=== PATIENT | female | born 1985 | race Caucasian/White ===

== ENCOUNTER 2019-09-26 09:34 | Outpatient (CLI) | payer OTHER, SELFPAY | END 2019-09-26 09:35 | disposition home or self-care (01) | PROVIDERS: PCP Family Medicine; Visit Provider Obstetrics & Gynecology | DX: N83.202 Unspecified ovarian cyst, left side (principal) | CPT/HCPCS: 36415; 86850; 86900; 86901 ==

== ENCOUNTER 2019-10-07 00:37 | Day surgery (SDC) | payer OTHER, SELFPAY ==
[2019-09-23 10:47] VITALS: BMI 18.1
--- NOTE | 2019-10-02 10:00 | PM.IMHP ---
H&P: HPI History of Present Illness Chief complaint: Left Ovarian Cyst/ Pelvic Pain Narrative: Manuela Mendoza is a 33 year old female 2 para 2 who is admitted for laparoscopy and left salpingo-oophorectomy. She has pain discomfort and dyspareunia. She underwent ultrasound which showed a left complex ovarian mass. Risks and benefits were reviewed including but not of , aspiration pneumonia, bleeding, transfusion, perforation injury to bowel, bladder, ureters, or other internal organs with need for open laparotomy. She read the [employer] handout entitled laparoscopy. She had all questions answered. She asked to proceed Review of Systems Review of Systems: All systems reviewed & are unremarkable except as noted in HPI and below PMFSH Family History Family History Grandparent Family history of lung cancer, Onset Age: 60 Social History Social History Smoking status: Smoker, status unknown Second hand tobacco smoke exposure: No Smoking end date: 08/21/05 Alcohol intake: current Meds Home Medications and Allergies Home Medications Medication Instructions Recorded Confirmed Type escitalopram oxalate 10 mg PO DAILY 09/23/19 09/23/19 History Allergies Allergy/AdvReac Type Severity Reaction Status Date / Time DIPHENHYDRAMINE HCL Allergy Severe SUDDEN Uncoded 09/23/19 10:48 SEVERE CHEST BURNING Exam Const: General: no acute distress Eyes: General: appearance normal, both eyes and all related structures Neck: Neck: supple and no JVD Thyroid: thyroid normal Resp: Effort & Inspection: normal respiratory effort Auscultation: clear to auscultation bilaterally Cardio: Rate: regular rate Rhythm: regular rhythm GI: Inspection: non-distended GI Palp: Yes Soft to palpation, No Tenderness to palpation present (GI) and No Guarding due to palpation present (GI) Auscultation: normal bowel sounds : External Female Exam: normal external appearance Speculum Exam - Vagina: normal appearance of the vagina Speculum Exam - Cervix: normal appearance of the cervix Bimanual exam- vagina & uterus: non-tender Bimanual Exam- Adnexa, other: tender (left fullness) Skin: General skin exam: no rashes or lesions noted Extrem: General: normal to inspection and no edema Psych: Mental Status: mental status grossly normal Affect: normal affect Assessment and Plan Additional Plan impression: Complex left ovarian cyst Plan: Laparoscopic left salpingo-oophorectomy
[2019-10-07] VITALS (10 sets, daily range): BP systolic 97–118; BP diastolic 57–69; PULSE 51–92; RESP 14–20; TEMP 36.2–36.4; O2SAT 99–100; BMI 18.6
--- NOTE | 2019-10-07 06:49 | WPDHPUPDATE1 ---
History and Physical Update Update Date/Time: 10/07/19 06:49 History and Physical has been reviewed, including an updated exam of the patient. There are NO changes in the patient's condition. Risks, benefits, and alternatives have been discussed and questions answered. Patient agrees to proceed with procedure.
--- NOTE | 2019-10-07 08:25 | WPDANESEPPF ---
Anes - Initial Pre Proc Eval Procedure: Operation Date: 10/07/19 09:00 Proposed Procedures p Laparoscopic Left Salpingo-Oophorectomy - El Blackmon MD Date/Time: 10/07/19 08:25 Surgeon: El Blackmon MD Pre Op Diagnosis: Left Ovarian Cyst/ Pelvic Pain Patient Data Age: 33 Gender: F Height: 5 ft 11 in Weight: 60.8 kg Last Vital Signs Temp 36.4 C L 10/07/19 07:40 Pulse 70 10/07/19 07:40 Resp 14 10/07/19 07:40 BP 107/57 L 10/07/19 07:40 Pulse Ox 100 10/07/19 07:40 Allergies Allergy/AdvReac Type Severity Reaction Status Date / Time DIPHENHYDRAMINE HCL Allergy Severe SUDDEN Uncoded 10/07/19 07:25 SEVERE CHEST BURNING Home Medications Medication Instructions Recorded Confirmed Type escitalopram oxalate 10 mg PO DAILY 09/23/19 10/07/19 History hydrocodone-acetaminophen [[place]] 1 tablet PO Q4H PRN #30 tablet 10/07/19 Rx Patient hx anesthesia problems: none Family hx anesthesia problems: none PMFSH Past Medical History Medical History Anxiety Family History Family History Grandparent Family history of lung cancer, Onset Age: 60 Social History Social History Smoking status: Smoker, status unknown Second hand tobacco smoke exposure: No Smoking end date: 08/21/05 Alcohol intake: current Anes - Eval Final PreProcedure Day of Procedure 10/07/19 08:25 Patient weight: normal Heart: regular rate and rhythm Lungs: clear to auscultation Airway: Mallampati scale class II Neurological: alert and oriented Last oral intake: >/= 8 hours ASA classification: II Emergent: no Anesthetic plan: proceed Anesthesia type and monitoring: general ETT and standard monitoring Informed Consent: The patient's anesthetic plan and its attendant risks and benefits were discussed with the patient/family/POA. Questions were solicited and answers provided to the satisfaction of the patient/family/POA.
[2019-10-07] MEDS: LACTATED RINGERS 1,000 ML 30 ML IV CONT ×2 (09:18→09:37)
[2019-10-07] MEDS: KETOROLAC 30 MG/ML VIAL (*BKC) IV PUSH (09:19)
--- NOTE | 2019-10-07 09:28 | P.OP_ITS ---
Procedure Note - Detailed Date of procedure: 10/07/19 Pre-op diagnosis: Left Ovarian Cyst/ Pelvic Pain Surgeon: El Blackmon MD Postop diagnosis: Left ovarian cyst/pelvic pain/pelvic adhesions/endometriosis Anesthesia: General endotracheal EBL: 5cc Complications: None Findings: Normal-appearing left ovary and tube normal appearing uterus. Complex left ovarian cyst with what appeared to be endometriosis. Normal appearing appendix liver and gallbladder edge Procedure: Laparoscopic left salpingo-oophorectomy description of procedure: The patient was prepped draped in the normal sterile fashion placed in dorsal lithotomy position. Weighted speculum placed in posterior fornix of vagina. Anterior lip of the cervix grasped with a single- tooth tenaculum. The Quintero's cannula was inserted the cervix to be attached to the uterine cannula for uterine manipulation later. Bladder was then emptied of clear urine. The weighted speculum was removed. Gloves were changed. An infraumbilical incision made and the Veress passed in the abdomen. The abdomen was filled with CO2 gas [id number] 5mm trocar was then advanced in the abdomen under direct visualization. No injury seen gas was reattached and the patient placed in Trendelenburg. A suprapubic incision made in the 5mm trocar advanced under direct visualization assuring no injury. Our left lower quadrant incision made and the 10mm trocar advanced under direct visualization assuring no injury. The above findings were noted the adhesions on the left were sharply dissected once these were clear the left infundibulopelvic structure was skeletonized. It was then clamped, burned, cut this was then placed in an Endo- Catch. Hemostasis was assured. The gas was removed from the abdomen. The trocars removed from the abdomen. Incisions closed with 4 O Monocryl glue. Blood loss was estimated at 5cc. All sponge, needle, instrument counts were correct, there were no immediate complications
== END 2019-10-07 11:45 | disposition home or self-care (01) ==
PROVIDERS: PCP Family Medicine; Visit Provider Obstetrics & Gynecology
PROC: (CPT 49320; principal; 2019-10-07 09:00)
DX: N83.202 Unspecified ovarian cyst, left side (principal); N83.8 Other noninflammatory disorders of ovary, fallopian tube and broad ligament; N73.6 Female pelvic peritoneal adhesions (postinfective); N80.1 Endometriosis of ovary; F41.9 Anxiety disorder, unspecified
CPT/HCPCS: 58661; 88305; A9270; J0330; J1100; J1885; J2250; J2405; J2704; J3010; J7030; J7120; Q9968

== ENCOUNTER 2021-11-09 12:36 | Outpatient (CLI) | payer OTHER, SELFPAY ==
--- NOTE | 2021-11-09 12:50 | ECHO_ITS ---
Patient Info Name: Manuela Mendoza Age: 36 years : 1985 Gender: Female Ht: 72 in Wt: 135 lbs BSA: 1.75 m2 HR: 72 bpm BP: 121 / 64 mmHg Heart Rhythm: Sinus Rhythm Technical Quality: Fair Exam Date: 11/09/2021 11:57 AM Exam Location: [facility] Pulmonary Patient Status: Outpatient Admit Date: 11/09/2021 Staff Ordering Physician: Jessie Campa PAC National Sales Representative: Analilia Ashton RDCS Attending Provider: Murali Sellers MD Referring Physician: Lokesh ALFONSO; Exam Type: CA echo doppler color flow Study Info Indications - Cardiac murmur, unspecified Complete two-dimensional, color flow and Doppler transthoracic echocardiogram is performed. Summary 1. Complete two-dimensional, color flow and Doppler transthoracic echocardiogram is performed. 2. Left ventricular chamber dimension is normal. 3. Left ventricular systolic function is normal, estimated at 55-60%. 4. The left ventricular diastolic function is normal. 5. E/e' 8 is minimally elevated. 6. No pulmonary hypertension, estimated pulmonary arterial systolic pressure is 20 mmHg. Left Ventricle E/e' 8 is minimally elevated. Left ventricular chamber dimension is normal. Left ventricular systolic function is normal, estimated at 55-60%. The left ventricular diastolic function is normal. Right Ventricle Right ventricular systolic function is normal and with normal TAPSE 1.9 cm. Right ventricular chamber dimension is normal. Left Atria Left atrial chamber dimension is normal. Right Atria Right atrial chamber dimension is normal. Aortic Valve The aortic valve is trileaflet. There is no aortic valve stenosis. There is no aortic valve regurgitation. Pulmonic Valve There is trace pulmonic regurgitation. Mitral Valve There is no mitral valve stenosis. There is no mitral valve regurgitation. Tricuspid Valve There is no tricuspid valve regurgitation. No pulmonary hypertension, estimated pulmonary arterial systolic pressure is 20 mmHg. Pericardium/Pleural There is no pericardial effusion. Inferior Vena Cava Normal inferior vena cava with >50% collapse upon inspiration consistent with normal right atrial pressure, 5 mmHg. Aorta The aortic root size at the sinus of Valsalva is normal. Left Ventricular Outflow Tract Name Value Normal LVOT 2D LVOT Diameter 2.1 cm LVOT Doppler LVOT Peak Gradient 4 mmHg LVOT Mean Gradient 2 mmHg LVOT VTI 20 cm LVOT VTI/AV VTI Ratio 0.8 LVOT Stroke Volume 69 ml LVOT CO 4.7 l/min LVOT CI 2.7 l/min/m2 Pulmonic Valve Name Value Normal RVOT Doppler RVOT Peak Gradient 2 mmHg PV Doppler ------
--- NOTE | 2021-11-12 11:10 | WPDHOLTEREM ---
Holter/Event Monitor Holter/Event Monitor Date of procedure: 11/09/21 Holter/Event Procedure: 48 Hr Holter Monitor Indications: Palpitations Conclusion: 1. 48 hour holter monitor on 11/09/21. 2. Predominant rhythm is sinus rhythm. HR range 40-146 bpm; average HR 72 bpm. 3. There are 2 premature supraventricular complexes. No supraventricular tachycardia. 4. There are 3,973 premature ventricular complexes, 4 ventricular couplets, 1 ventricular triplet, 2,383 ventricular trigeminy. One ventricular tachycardia at 150 bpm lasting 7 beats at 19:18. 5. No sinoatrial or atrioventricular blocks. No significant pauses greater than 2 seconds. 6. Patient reports symptoms of palpitations, lightheadedness, hard pounding which demonstrate sinus rhythm, HR range 65-97 bpm with 2 episodes with PVC's and one with ventricular tachycardia described above.
== END 2021-11-09 12:37 | disposition home or self-care (01) ==
PROVIDERS: PCP Family Medicine; Visit Provider Family Medicine
DX: R00.2 Palpitations (principal); R01.1 Cardiac murmur, unspecified; R06.02 Shortness of breath
CPT/HCPCS: 93225; 93226; 93306

== ENCOUNTER 2022-02-13 10:01 | Emergency (ER) | payer OTHER, SELFPAY ==
[2022-02-13 10:15] VITALS: BP 116/66; PULSE 66; RESP 18; TEMP 37.2; O2SAT 100
--- NOTE | 2022-02-13 10:30 | ED.ABDPAIN ---
HPI - Abdominal Pain General Chief Complaint: Urogenital-Female Stated Complaint: abdominal and lower back pain Time Seen by Provider: 02/13/22 10:20 Source: patient Mode of arrival: ambulatory Limitations: no limitations History of Present Illness HPI narrative: Patient presents today complaining of generalized abdominal pain that radiates to her bilateral low back, that started this morning. She also had nausea at onset of symptoms, but this has since resolved after using a heating pad on her abdomen. Patient also reports some mild dysuria x2 days with some dark-colored urine that has been slightly malodorous. Denies hematuria. She currently rates her pain 5/10. She has tried no [id number] medication for symptoms prior to arrival. Related Data Home Medications Medication Instructions Recorded Confirmed buspirone 5 mg tablet 1 tablet BID 02/13/22 02/13/22 Allergies Allergy/AdvReac Type Severity Reaction Status Date / Time diphenhydramine AdvReac Severe Chest Pain Verified 02/13/22 10:21 [From Benadryl Allergy] Review of Systems Review of Systems: CONSTITUTIONAL: Denies body aches, fever, chills, or sweats. EYES: Denies visual changes, redness, or discharge. ENT: Denies rhinorrhea, congestion, sore throat, or otalgia. CARDIOVASCULAR: Denies chest pain, palpitations, or edema. RESPIRATORY: Denies cough or dyspnea. GASTROINTESTINAL: Denies vomiting, or diarrhea.+ Abdominal pain, nausea GENITOURINARY: Denies hematuria.+ Dysuria SKIN: Denies rash, itching, or wounds. MUSCULOSKELETAL: Denies back pain, joint pain, or myalgia. NEUROLOGIC: Denies headache, numbness, tingling, or weakness. PSYCH: Denies depression or anxiety. [facility] Past Medical History Medical History Anxiety Body mass index (BMI) less than 20 Daytime sleepiness Holter monitor, abnormal Low libido PFO (patent foramen ovale) Family History Family History Grandparent Family history of lung cancer, Onset Age: 60 Father CHF (congestive heart failure) Mother No problems noted. Sibling No problems noted. 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 Please see nursing chart for further information. There is no relevant family history pertinent to the presenting complaint Exam Narrative: GENERAL: Well-appearing, well-nourished, and in no acute distress. HEAD: Normocephalic, atraumatic. EYES: EOMI. No redness or drainage. Conjunctivae normal. ENT: Mucous membranes pink and moist. NECK: Normal AROM. CHEST: No respiratory distress. Clear to auscultation. HEART: Regular rate and rhythm. No murmur appreciated. Normal peripheral pulses. ABDOMEN: Soft, nondistended, normal active bowel sounds.+ Tenderness right lower quadrant and suprapubic area without rebound or guarding.-CVAT EXTREMITIES: Normal range of motion. No edema. SKIN: Warm, dry, no rash. Capillary refill normal. Normal skin turgor. NEURO: No focal deficits. Alert and oriented x3. Gait steady. PSYCH: Normal affect. No signs of depression or anxiety. Course Course Level of Care: Express Care Visit Vital Signs Vital signs: Vital Signs Temperature 99.0 F
== END 2022-02-13 10:40 | disposition short-term general hospital (02) ==
PROVIDERS: Emergency Provider Nurse Practitioner; PCP Family Medicine
DX: R10.31 Right lower quadrant pain (principal); R10.30 Lower abdominal pain, unspecified; F17.210 Nicotine dependence, cigarettes, uncomplicated; F41.9 Anxiety disorder, unspecified
CPT/HCPCS: 81003; 81025; 99212; G0463

== ENCOUNTER 2022-02-13 10:54 | Emergency (ER) | payer OTHER, SELFPAY ==
--- NOTE | ~2022-02-13 | US_ITS ---
EXAMINATION: US pelvic complete DATE: 02/13/2022 14:43 INDICATION: RLQ/suprapubic pain, CL cyst on R ovary, r/o tors TECHNIQUE: Multiple transabdominal and endovaginal sonographic images of the pelvis were obtained. COMPARISON: CT abdomen pelvis, same date FINDINGS: Uterus: 9.2 x 5.4 x 6.8 cm. Endometrial complex measures 0.9 cm. Right Ovary: 4.3 x 4.4 x 2.8 cm. Vascular flow is present. Corpus luteal cyst. Left Ovary: Surgically absent. There is small volume free fluid in the pelvis. IMPRESSION: 1. Status post left oophorectomy. 2. Otherwise normal pelvic sonogram findings. Reviewed, dictated and finalized at location K.
--- NOTE | ~2022-02-13 | CT_ITS ---
EXAMINATION: CT abdomen pelvis w con INDICATION: Right lower quadrant and flank pain TECHNIQUE: Computed tomographic images of the abdomen and pelvis were obtained after the administrati on of 100 cc of Omnipaque 300 intravenous contrast. The dose-length product (DLP) was 230.50 mGy-cm. Automated exposure control and iterative reconstruction technique were employed. COMPARISON: 07/19/2016 FINDINGS: The lung bases are clear. The heart size is normal. The liver, pancreas, gallbladder, and a drenal glands are normal. There is a chronic 1.4 cm cyst or lymphangioma spleen. The kidneys are unre markable. The appendix is normal. No definite urolithiasis is identified. There is a corpus luteum of the right ovary. A small amount of free fluid in the pelvis is likely physiologic. There is a tiny u mbilical hernia containing fat. IMPRESSION: 1. No CT correlate for the patient's symptoms. Reviewed, dictated and finalized at location A.
--- NOTE | 2022-02-13 10:56 | ED.ABDPAIN ---
HPI - Abdominal Pain General Chief Complaint: Abdominal Pain <THANG Sanchez Last Filed: 02/13/22 19:52> Stated Complaint: ABD pain <THANG Sanchez Last Filed: 02/13/22 19:52> Time Seen by Provider: 02/13/22 10:55 <THANG Sanchez Last Filed: 02/13/22 19:52> Source: patient and old records reviewed <THANG Sanchez Last Filed: 02/13/22 19:52> Mode of arrival: ambulatory <THANG Sanchez Last Filed: 02/13/22 19:52> Limitations: no limitations <THANG Sanchez Filed: 02/13/22 19:52> History of Present Illness HPI narrative: Patient is a 36-year-old female who presents the ED with report of abdominal pain. Patient reports she developed severe pain in her mid lower abdomen around 8 AM this morning, over her suprapubic region. She also felt the pain in her bilateral lower back at that time. She laid down on a heating pad for a while and reported some relief of the pain. She also states she felt nauseous, sweaty with the pain, but denied any vomiting. She went to an urgent care but was sent here due to right lower quadrant tenderness on exam. Patient states the pain is rated 10 out of 10 on the pain scale earlier today, but is now a 3-4 out of 10. She has not taken anything for the pain. She does still have some discomfort over her suprapubic region. She also reports having increased urination and dysuria over the past couple days, but denies any hematuria. No fever, chills, chest pain, difficulty breathing, diarrhea, constipation, rectal bleeding. <THANG Sanchez Last Filed: 02/13/22 19:52> Related Data Home Medications: Home Medications Medication Instructions Recorded Confirmed buspirone 5 mg tablet 1 tablet BID 02/13/22 02/13/22 <THANG Sanchez Last Filed: 02/13/22 19:52> Allergies/Adverse Reactions: Allergies Allergy/AdvReac Type Severity Reaction Status Date / Time diphenhydramine AdvReac Severe Chest Pain Verified 02/13/22 10:21 [From Benadryl Allergy] <Yeny Goldstein PA-C - Last Filed: 02/13/22 19:52> Review of Systems Review of Systems: CONSTITUTIONAL: Reports diaphoresis. Denies fever, chills. CARDIOVASCULAR: Denies chest pain. RESPIRATORY: Denies dyspnea. GASTROINTESTINAL: Reports suprapubic abdominal pain, nausea. Denies vomiting, constipation, rectal bleeding, or diarrhea. GENITOURINARY: Reports dysuria, urinary frequency. Denies hematuria. MUSCULOSKELETAL: Reports bilateral lower back pain. Denies joint pain, or myalgia. NEUROLOGIC: Denies headache, numbness, or weakness. <Yeny Goldstein PA-C - Last Filed: 02/13/22 19:52> All systems reviewed & are unremarkable except as noted in HPI and below <Yeny Goldstein PA-C - Last Filed: 02/13/22 19:52> [facility] Past Medical History Medical History: Medical History (Updated 02/14/22 @ 00:00 by [facility] Jake) Anxiety Body mass index (BMI) less than 20 Daytime sleepiness Holter monitor, abnormal Low libido PFO (patent foramen ovale) <Yeny Goldstein PA-C - Last Filed: 02/13/22 19:52> Surgical History Surgical History: Surgical History (Updated 02/13/22 @ 11:24 by Yeny Goldstein PA-C) History of laparoscopy History of left oophorectomy <Yeny Goldstein PA-C - Last Filed: 02/13/22 19:52> Family History Family History: Family History Grandparent Family history of lung cancer, Onset Age: 60 Father CHF (congestive heart failure) Mother No problems noted. Sibling No problems noted. <Yeny Goldstein PA-C - Last Filed: 02/13/22 19:52> Social History Social History: Social History Smoking packs per day: 0.5 Smoking cigarettes per day: 10.0 Years smoked: 15 Smoking pack-years: 7.50 Tobacco type: cigarettes Second hand tobacco smoke exposure: No Al
[2022-02-13 11:01] VITALS: BP 114/70; PULSE 66; RESP 14; TEMP 36.6; O2SAT 100
[2022-02-13 11:10] LABS: Basophils Percent Auto 0.3 % (0.2-1.2); Eosinophils Absolute Auto 0.1 K/mm3 (0-0.3); Hematocrit 41.2 % (37.0-47.0); Immature Granulocyte Absolute 0.03 K/mm3 (0.00-0.031); Immature Granulocyte Percent A 0.3 % (0-0.5); Lymphocytes Absolute Auto 1.22 K/mm3 (0.9-3.2); Mean Corpuscular HGB Conc 31.6 g/dl (32-36); Mean Corpuscular Hemoglobin 27.7 pg (26-34); Mean Corpuscular Volume 87.7 fl (80-100); Mean Platelet Volume 11.5 fl (7.4-10.4); Monocytes Absolute Auto 0.7 K/mm3 (0.1-0.6); Monocytes Percent Auto 6.6 % (2.6-8.5); Neutrophils Absolute Auto 8.1 K/mm3 (1.3-6.7); Neutrophils Percent Auto 79.8 % (45.5-73.1); Platelet Count Result 164 k/mm3 (150-375); Red Cell Distribution Width 14.6 % (11.5-14.5); White Blood Count 10.2 K/mm3 (4.5-10.0)
[2022-02-13 11:11] LABS: Appearance Urine Clear (Clear); Bilirubin Urine Negative (Negative); Color Urine Yellow (Yellow); Glucose Urine UA Negative (Negative); Ketones Urine Negative (Negative); Leukocyte Esterase Ur Trace LEU/UL (Negative); Nitrate Urine Negative (Negative); Protein Urine Negative (Negative); Urobilinogen Urine 0.2 mg/dL (<2.0)
[2022-02-13 11:14] LABS: Add Urine Microscopic? YES; Blood Urine Trace-Intact (Negative)
[2022-02-13 11:15] LABS: Bacteria Urine Trace /hpf; RBC Urine 0-2 /hpf (0-2); Squamous Epithelial Cell Urine Occasional /hpf (Few); WBC Urine 0-3 /hpf
[2022-02-13 11:19] LABS: Alanine Aminotransferase 11 U/L (6-35); Albumin Level 4.7 g/dL (3.5-5.1); Alkaline Phosphatase 74 U/L (38-126); Anion Gap 5 mmol/L (8-16); Aspartate Amino Transferase 20 U/L (14-36); Bilirubin,Total 0.4 mg/dL (0.2-1.3); Blood Urea Nitrogen 12 mg/dL (7-17); Calcium 9.3 mg/dL (8.4-10.2); Carbon Dioxide 27 mmol/L (22-30); Chloride 105 mmol/L (98-107); Estimated CRCL calculation 90 ml/min; Estimated Glomerular Filt Rate > 60; Glucose 93 mg/dL (65-110); Lipase 74 U/L (23-300); Potassium 4.2 mmol/L (3.4-5.0); Sodium 137 mmol/L (137-145)
[2022-02-13] MEDS: SODIUM CHLORIDE 0.9% IV 1,000 ML 999 ML IV CONT (12:45)
== END 2022-02-13 15:30 | disposition home or self-care (01) ==
PROVIDERS: Physician Assistant; Emergency Provider Emergency Medicine; PCP Family Medicine
DX: F41.9 Anxiety disorder, unspecified (principal); F17.210 Nicotine dependence, cigarettes, uncomplicated; N83.11 Corpus luteum cyst of right ovary; Z90.721 Acquired absence of ovaries, unilateral
CPT/HCPCS: 36415; 74177; 76856; 80053; 81001; 81025; 83690; 85025; 87086; 96361; 96374; 99284; J0131; J7030; Q9967

== ENCOUNTER → 2022-07-29 13:45 | Outpatient (CLI) | payer OTHER, SELFPAY ==
--- NOTE | ~2022-07-29 | XR_ITS ---
XR hip LT 2V w AP pelvis, XR femur LT min 2V 07/29/2022 14:00 Indication: Left hip pain. Old injury. Procedure: AP pelvis and 2 views left hip and 2 views of the left femur Comparison: 04/30/2012 Findings: No fracture, subluxation or dislocation. There is an intramedullary johnny in the femur with a single proximal and 2 distal interlocking screws. There is heterotopic ossification adjacent to the greater trochanter. Pelvic rings are intact. There is callus formation in the mid shaft of the femur from prior fracture. Impression: 1: No acute bone or joint abnormality. Reviewed, dictated and finalized at location A. [employer] Impression: 1: No acute bone or joint abnormality. Impression: 1: No acute bone or joint abnormality.
== END ==
PROVIDERS: PCP Physician Assistant Medical; Visit Provider Physician Assistant Medical
DX: G89.29 Other chronic pain (principal); M25.559 Pain in unspecified hip
CPT/HCPCS: 73502; 73552

== ENCOUNTER 2023-01-10 14:15 | Outpatient (CLI) | payer OTHER, SELFPAY ==
[2023-01-10 15:30] LABS: Basophils Absolute Auto 0.1 K/mm3 (0.0-0.1); Basophils Percent Auto 0.8 % (0.2-1.2); Eosinophils Absolute Auto 0.2 K/mm3 (0-0.3); Eosinophils Percent Auto 2.1 % (0-4.4); Hematocrit 37.9 % (37.0-47.0); Hemoglobin 12.3 g/dL (12.0-15.0); Immature Granulocyte Absolute 0.01 K/mm3 (0.00-0.031); Immature Granulocyte Percent A 0.1 % (0-0.5); Lymphocytes Absolute Auto 2.22 K/mm3 (0.9-3.2); Lymphocytes Percent Auto 30.6 % (18.3-44.2); Mean Corpuscular HGB Conc 32.5 g/dl (32-36); Mean Corpuscular Hemoglobin 28.7 pg (26-34); Mean Corpuscular Volume 88.6 fl (80-100); Mean Platelet Volume 11.6 fl (7.4-10.4); Monocytes Absolute Auto 0.6 K/mm3 (0.1-0.6); Monocytes Percent Auto 8.4 % (2.6-8.5); Neutrophils Absolute Auto 4.2 K/mm3 (1.3-6.7); Platelet Count Result 166 k/mm3 (150-375); Red Blood Count 4.28 M/mm3 (4.2-5.4); White Blood Count 7.3 K/mm3 (4.5-10.0)
== END 2023-01-10 14:16 | disposition home or self-care (01) ==
LOC: ANHSURGERY 14:20
PROVIDERS: PCP Physician Assistant Medical; Visit Provider Obstetrics & Gynecology
DX: N81.4 Uterovaginal prolapse, unspecified (principal); Z01.818 Encounter for other preprocedural examination
CPT/HCPCS: 36415; 85025; 86850; 86900; 86901

== ENCOUNTER 2023-01-14 16:44 | Observation (INO) | payer OTHER, SELFPAY ==
[2023-01-09 09:22] VITALS: BMI 18.3
--- NOTE | 2023-01-09 09:26 | PC.NURSE ---
Report to the Outpatient Waiting Room, entrance under the green pavilion located off [facility], at time 7:30 on date 01/13/23. Planned Procedure Time: 9:30. Time changes happen often and if your time is changed the preop area will call you the afternoon before. - You and your visitor will be asked to self-screen and do not enter if you have any COVID symptoms. - A mask is optional within the hospital at this time. Patients may have clear liquids (water, carbonated beverages, clear teas, apple juice) until 3 hours prior to surgery (6:30) with a maximum of 20 ounces. - No food from midnight until time of surgery Take the following medications with a SIP of water the morning of surgery: N/A DO NOT STOP ANY OF YOUR OTHER PRESCRIPTION MEDICATIONS PRIOR TO SURGERY?EXCEPT THE FOLLOWING Medications to discontinue per physician: N/A Date to take last dose: N/A Please no make-up, nail chinese, hairspray, perfume, deodorant, or body powder the day of surgery. No jewelry (including any body piercings) or valuables the day of surgery, leave them at home. Please take a shower or bath the night before, or the morning of, surgery with an antibacterial soap. Wear comfortable, loose fitting clothing. - Jewelry must be removed prior to entering the operating room. Rings and piercings that are not removed may be cut off. - The hospital will not accept responsibility for valuables. - Please leave all valuables, including medications, at home the day of surgery. If you are going home after surgery, a licensed charter coach driver must drive you home. - NO public transportation without another adult if you receive anesthesia. - We recommend that an adult stay with you for 24 hours following discharge. - We also recommend that you do not drive, make important decision, drink alcoholic beverages, or take any drugs that were not prescribed by your health care provider for at least 24 hours after your discharge time. Follow any additional instructions given to you from your surgeon. If you or anyone in your household have experienced Covid symptoms in the past week, please notify your surgeon or the nurse liaison at the phone number below for possible testing. Telephone instructions given to PT - ISSA JACK and asked if any additional questions and then verbalized understanding. Patient advised to call surgeon office or pre surgery nurse liaison [phone] if any additional questions.
--- NOTE | 2023-01-12 07:32 | PM.IMHP ---
H&P: HPI History of Present Illness Date/Time: 01/12/23 07:32 Chief Complaint: uterine prolapse/pelvic pain /dyspareunia Narrative: this is a 37-year-old 2 para 2 admitted for robotic total vaginal hysterectomy and bilateral salpingectomy secondary to uterine prolapse and pelvic pain. Ultrasound was. The prolapse is Kuster pain discomfort dyspareunia. Risks and benefits of this procedure exclusive , aspiration bleeding, transfusion, perforation bowel or other internal organs with need for. She received the ACOG handout hysterectomy as well as the de [place]vin handout. She had all questions answered and asked to proceed PMFSH Past Medical History Medical History Anxiety Body mass index (BMI) less than 20 Daytime sleepiness Holter monitor, abnormal Low libido PFO (patent foramen ovale) Surgical History Surgical History History of laparoscopy History of left oophorectomy Family History Family History Grandparent Family history of lung cancer, Onset Age: 60 Father CHF (congestive heart failure) Mother No problems noted. Sibling No problems noted. Social History Social History Smoking packs per day: 0.5 Smoking cigarettes per day: 10.0 Years smoked: 10 Smoking pack-years: 5.00 Smoking status: Current every day smoker Tobacco type: cigarettes Second hand tobacco smoke exposure: No Smoking end date: 05/21/22 Alcohol intake: current Drinks per week: 2 Substance use: never Substance use type: does not use Living arrangements: with family Occupation/Education: occupation Additional occupation/education comments: [employer] Gender identity (if verbalized by the patient): Female Sexual Orientation (if Verbalized by the Patient): Straight or Heterosexual Spiritual care concerns: No Meds Home Medications and Allergies Home Medications Medication Instructions Recorded Confirmed Type No Home Medications 01/09/23 01/09/23 History Allergies Allergy/AdvReac Type Severity Reaction Status Date / Time diphenhydramine AdvReac Severe Chest Pain Verified 01/09/23 09:21 [From Benadryl Allergy] Exam Const: General: cooperative, healthy appearing, comfortable and average body habitus Orientation/consciousness: oriented to person, oriented to place and oriented to time HENMT: Head: normal to inspection Resp: Effort & Inspection: normal respiratory effort Cardio: Rate: regular rate Rhythm: regular rhythm Heart sounds: S1 normal heart sound present and S2 normal heart sound present GI: Inspection: normal to inspection : External Female Exam: normal external appearance Speculum Exam - Vagina: normal appearance of the vagina Speculum Exam - Cervix: normal appearance of the cervix ( second-degree prolapse present) Bimanual exam- vagina & uterus: non-tender and Uterine tenderness Bimanual Exam- Adnexa, other: normal adnexae Assessment and Plan Assessment and plan (1) Pelvic pain: Code(s): R10.2 - Pelvic and perineal pain Status: Acute (2) Uterine prolapse: Code(s): N81.4 - Uterovaginal prolapse, unspecified Status: Acute Plan robotic total vaginal hysterectomy bilateral salpingectomy
[2023-01-13] VITALS (14 sets, daily range): BP systolic 92–122; BP diastolic 55–78; PULSE 48–87; RESP 12–18; TEMP 36.2–37.3; O2SAT 98–100
--- NOTE | 2023-01-13 06:27 | WPDHPUPDATE1 ---
History and Physical Update Update Date/Time: 01/13/23 06:27 History and Physical has been reviewed, including an updated exam of the patient. There are NO changes in the patient's condition. Risks, benefits, and alternatives have been discussed and questions answered. Patient agrees to proceed with procedure.
--- NOTE | 2023-01-13 08:02 | WPDANESEPPF ---
Anes - Initial Pre Proc Eval Procedure: Operation Date: 01/13/23 09:30 Proposed Procedures p Robotic Assisted Total Vaginal Hysterectomy with Right Salpingectomy - El Garcia MD Date/Time: 01/13/23 08:02 Surgeon: El Garcia MD Pre Op Diagnosis: Uterine Prolapse, Dysmenorrhia, Dyspareunia Patient Data Age: 37 Gender: F Height: 1.83 m Weight: 55.55 kg Last Vital Signs Temp 97.9 F 01/13/23 07:46 Pulse 87 01/13/23 07:46 Resp 16 01/13/23 07:46 BP 110/74 01/13/23 07:46 Pulse Ox 100 01/13/23 07:46 O2 Del Method Room Air 01/13/23 07:46 Allergies Allergy/AdvReac Type Severity Reaction Status Date / Time diphenhydramine AdvReac Severe Chest Pain Verified 01/13/23 07:53 [From Benadryl Allergy] Home Medications Medication Instructions Recorded Confirmed Type hydrocodone 5 mg-acetaminophen 325 1 tablet PO Q4H PRN pain #30 tabs 01/13/23 Rx mg tablet Patient hx anesthesia problems: none Family hx anesthesia problems: none Results Review: All pre-operative results and documents have been reviewed as part of the pre-operative evaluation. [facility] Past Medical History Medical History Anxiety Body mass index (BMI) less than 20 Daytime sleepiness Holter monitor, abnormal Low libido PFO (patent foramen ovale) Surgical History Surgical History History of laparoscopy History of left oophorectomy Family History Family History Grandparent Family history of lung cancer, Onset Age: 60 Father CHF (congestive heart failure) Mother No problems noted. Sibling No problems noted. 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 Gender identity (if verbalized by the patient): Female Sexual Orientation (if Verbalized by the Patient): Straight or Heterosexual Spiritual care concerns: No Anes - Eval Final PreProcedure Day of Procedure 01/13/23 08:02 Patient weight: normal Heart: regular rate and rhythm Lungs: clear to auscultation Airway: Mallampati scale Neurological: alert and oriented Last oral intake: >/= 8 hours ASA classification: II Emergent: no Anesthetic plan: proceed Anesthesia type and monitoring: general ETT and standard monitoring Results Review: All pre-operative results and documents have been reviewed as part of the pre-operative evaluation. Informed Consent: The patient's anesthetic plan and its attendant risks and benefits were discussed with the patient/family/POA. Questions were solicited and answers provided to the satisfaction of the patient/family/POA.
[2023-01-13] MEDS: LACTATED RINGERS 1,000 ML 30 ML IV CONT ×2 (08:10→10:58)
[2023-01-13] MEDS: KETOROLAC 15 MG/ML VIAL (*BKC) IV PUSH (08:11)
[2023-01-13] MEDS: ACETAMINOPHEN 500 MG TABLET 1000 MG PO (08:11)
[2023-01-13] MEDS: ceFAZolin 2 GM/D5W 50 ML 2 GM/50 ML BAG IVPB (09:21)
--- NOTE | 2023-01-13 10:22 | W.PM.PROC2 ---
Procedure Note - Detailed Date of Procedure 01/13/23 Pre-op Diagnosis Uterine Prolapse, Dysmenorrhia, Dyspareunia Post-op Diagnosis Other (Endometriosis of right ovary) Procedure Performed robotic total vaginal hysterectomy right salpingo-oophorectomy and left salpingectomy Surgeon El Garcia MD Anesthesia General Indications 37-year-old female status post right oophorectomy secondary to endometriosis who was admitted for hysterectomy secondary to enlarged uterus uterine prolapse cutting complex right ovarian cyst. Initially the plan was to retain the remaining right ovary however was encased with endometriosis did not appear salvageable Findings uterine prolapse. Enlarged uterus. Left fallopian tube portion was present. Right ovary was encased in endometriosis Description of Procedure patient was prepped draped in the normal sterile fashion placed in dorsal lithotomy position. Under excellent general trach anesthesia weighted speculum placed in posterior fornix vagina. Anterior lip of the cervix grasped with single-tooth tenaculum. Uterus sounded to 10cm. Serial dilatation with fragmented dilators performed. This was followed by passage of the 10. LEYLA and the 3. 0.5 cold cup. Next the 16 Maori catheter was placed and the single-tooth tenaculum and weighted speculum were removed. Gloves were changed. Supraumbilical incision made the Veress needle passed in the abdomen. Abdomen filled with CO2 gas [id number]. The 8mm trocar advanced in the abdomen. Downside visualized no injury seen. Patient placed in Trendelenburg 20? and right left lateral quadrant incisions made. 8Mm trocars advanced under direct visualization assuring no injury. Right upper quadrant incision made the 8mm trocar advanced under direct visualization assuring no injury. The robot was docked. Attention was turned to the console. The right ovary was encased with multiple areas of endometriosis and a large what appeared to be endometrioma. If not feel that it was salvageable. The left ovary and portion of the tube were surgically absent. The left fallopian tube was dissected away from the lateral complex the round ligament was grasped on the left clamped, burned, cut. Bladder flap formed by sharply dissecting the peritoneum and reflecting the bladder caudally to the opposite round ligament was clamped, burned, cut. It was felt that point there was no saving right ovary tube so the infundibulopelvic structure on that side skeletonized clamping burning cutting and bringing this to level of previously cut round ligament. The left cardinal broad ligaments were serially skeletonized clamping burning cutting and bringing these down to the uterine vessels on the left. These were individually clamped, burned, cut. On the right the cardinal broad ligaments were serially skeletonized clamping, burned using cutting and bringing this down to the level the ovarian vessels so on right. These were individually clamped, burned, cut. Good blanching was seen in a colpotomy incision was made the uterus cervix fallopian tubes and right ovary removed through the vagina. The vagina then closed with continuous running 0 Vicryl from lateral edge to lateral edge back to the midline. Irrigation undertaken until clear. Hemostasis was assured the lap term removed and accounted for. Robot was undocked the gas removed from the abdomen. The trocars removed and closed with 4 Monocryl and glue. Patient was awakened and went to recovery in satisfactory condition. All sponge, needle, instrument counts were correct. There were no immediate complications Estimated Blood Loss 25 Drains No Packing No Pathology Yes Complications No immediate complications Condition Stable Disposition PACU
[2023-01-13] MEDS: fentaNYL CITRATE INJ (*CRX) 100 MCG/2 ML VIAL 25 MCG IV PUSH ×7 (10:49→11:44)
--- NOTE | 2023-01-13 12:05 | PC.NURSE ---
PT arrived on unit via bed accompanied by spouse and family. PT alert and awake and oriented to room 277 and surrounding area. 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 PT and spouse both recipients of such instructions and no barriers to learning identified at this time. PT received such instructions per one to one discussion and demonstrations. PT verbalized understanding of such care.
[2023-01-13] MEDS: DEXTROSE 5%/LACTATED RINGERS 1,000 ML 125 ML IV CONT ×2 (13:07→20:40)
[2023-01-13] MEDS: KETOROLAC 30 MG/ML VIAL (*BKC) IV PUSH (13:07)
[2023-01-13] MEDS: SIMETHICONE 80 MG TAB.CHEW PO ×3 (13:08→17:56)
[2023-01-13] MEDS: HYDROcodone/acetaminophen (*CRX) 5-325 MG TABLET 1 TAB PO ×3 (15:21→20:59)
[2023-01-13] MEDS: DOCUSATE SODIUM 100 MG CAPSULE PO (17:56)
[2023-01-13] MEDS: ESTRADIOL 7 DAY 0.05 MG PATCH TRANSDERM (20:50)
[2023-01-14] VITALS (13 sets, daily range): BP systolic 82–101; BP diastolic 45–60; PULSE 60–77; RESP 14–18; TEMP 36.3–37.2; O2SAT 97–100
[2023-01-14] MEDS: SIMETHICONE 80 MG TAB.CHEW PO ×4 (04:42→17:49)
[2023-01-14] MEDS: IBUPROFEN 600 MG TABLET PO ×2 (04:43→23:22)
[2023-01-14] MEDS: HYDROcodone/acetaminophen (*CRX) 5-325 MG TABLET 1 TAB PO (04:43)
[2023-01-14 05:40] LABS: Basophils Percent Auto 0.2 % (0.2-1.2); Eosinophils Percent Auto 0.2 % (0-4.4); Hemoglobin 7.6 g/dL (12.0-15.0); Immature Granulocyte Absolute 0.03 K/mm3 (0.00-0.031); Immature Granulocyte Percent A 0.2 % (0-0.5); Lymphocytes Absolute Auto 1.57 K/mm3 (0.9-3.2); Lymphocytes Percent Auto 12.5 % (18.3-44.2); Mean Corpuscular HGB Conc 31.7 g/dl (32-36); Mean Corpuscular Hemoglobin 28.1 pg (26-34); Mean Corpuscular Volume 88.9 fl (80-100); Mean Platelet Volume 12.3 fl (7.4-10.4); Monocytes Absolute Auto 0.8 K/mm3 (0.1-0.6); Monocytes Percent Auto 6.4 % (2.6-8.5); Neutrophils Absolute Auto 10.1 K/mm3 (1.3-6.7); Neutrophils Percent Auto 80.5 % (45.5-73.1); Platelet Count Result 139 k/mm3 (150-375); Red Cell Distribution Width 12.9 % (11.5-14.5); White Blood Count 12.5 K/mm3 (4.5-10.0)
--- NOTE | 2023-01-14 07:03 | PM.GYNPNOP ---
[employer] FRONT PRESSER - A/P Postoperative Procedures: Procedures Operation Date: 01/13/23 09:30 Actual Procedure Side Surgeon p Robotic Assisted Total Vaginal Hysterectomy with Right Salpingo-Oophorectomy, Left Salpingectomy Bilateral El Garcia MD Postoperative status: doing well Postoperative plan: routine post-op care, see orders, ambulate, advance diet, voiding trials and discharge Time Spent With Patient Time: Total time spent is greater than 50% in coordination of care (as documented) at patient's floor/unit and/or counseling patient: Time with patient: less than 15 minutes VEST FRONT PRESSER- PN:Subj Post-Op Subjective Date/time seen: 01/14/23 07:03 Interval history: had a near syncopal episode yesterday. Feeling better today Subjective: patient reports feeling better, patient has no complaints and pain is well controlled Exam Const: General: cooperative, healthy appearing and comfortable Nutritional Appearance: average body habitus Orientation/consciousness: oriented to person, oriented to place and oriented to time HENMT: Head: normal to inspection Resp: Effort & Inspection: normal respiratory effort Cardio: Rate: regular rate Rhythm: regular rhythm Heart sounds: S1 normal heart sound present and S2 normal heart sound present GI: Inspection: normal to inspection and incision ( wounds are clean dry and intact) Percussion: Yes normal to percussion Auscultation: normal bowel sounds VEST FRONT PRESSER - PN: Obj Data Vital Signs Vital Signs: Vital Signs - 24 hr 01/13/23 07:46 01/13/23 10:39 01/13/23 10:50 Temperature 97.9 F 97.2 F L Pulse Rate 87 72 55 L Respiratory Rate 16 16 12 Blood Pressure 110/74 122/60 115/71 Pulse Oximetry 100 100 100 Oxygen Delivery Room Air Simple Face Mask Simple Face Mask Oxygen Flow Rate 8 8 01/13/23 11:05 01/13/23 11:20 01/13/23 11:35 Temperature Pulse Rate 48 L 85 72 Respiratory Rate 12 16 16 Blood Pressure 116/71 112/75 118/78 Pulse Oximetry 100 100 100 Oxygen Delivery Simple Face Mask Simple Face Mask Simple Face Mask Oxygen Flow Rate 8 8 8 01/13/23 11:40 01/13/23 11:50 01/13/23 12:00 Temperature Pulse Rate 56 L 52 L Respiratory Rate 12 14 Blood Pressure 102/68 105/60 Pulse Oximetry 100 98 100 Oxygen Delivery Room Air Room Air Room Air Oxygen Flow Rate 01/13/23 12:10 01/13/23 12:15 01/13/23 17:30 Temperature 97.5 F L 97.8 F Pulse Rate 63 63 64 Respiratory Rate 18 18 18 Blood Pressure 114/65 120/68 Pulse Oximetry 100 100 100 Oxygen Delivery Room Air Oxygen Flow Rate 01/13/23 20:11 01/13/23 20:11 01/13/23 23:47 Temperature 99.2 F 99 F Pulse Rate 60 60 65 Respiratory Rate 18 18 18 Blood Pressure 108/61 92/55 L Pulse Oximetry 100 100 98 Oxygen Delivery Room Air Oxygen Flow Rate 01/13/23 23:47 01/14/23 04:35 01/14/23 04:35 Temperature 98.9 F Pulse Rate 65 69 69 Respiratory Rate 18 18 18 Blood Pressure 94/45 L Pulse Oximetry 98 99 99 Oxygen Delivery Room Air Room Air Oxygen Flow Rate Intake/Output Intake/Output: Intake & Output 01/11/23 01/12/23 01/13/23 01/14/23 23:59 23:59 23:59 23:59 Intake Total 3050 400 Output Total 1590 300 Balance 1460 100 Meds/Results Medications: Active Medications Generic Name Dose Route Start Last Admin Trade Name Freq PRN Reason Stop Dose Admin Hydrocodone Bitart/Acetaminophen 1 tab 01/13/23 12:06 Hydrocodone/Acetaminophen (*Crx) 10-325 Mg Tablet PO Q3H PRN Pain Rated 6 or Greater Hydrocodone Bitart/Acetaminophen 1 tab 01/13/23 12:06 01/14/23 04:43 Hydrocodone/Acetaminophen (*Crx) 5-325 Mg Tablet PO 1 tab Q3H PRN Administration Pain Rated 5 or Less Docusate Sodium 100 mg 01/13/23 17:00 01/13/23 17:56 Docusate Sodium 100 Mg Capsule PO 100 mg BID NUBIA Administration Enoxaparin Sodium 40 mg 01/14/23 09:00 Enoxaparin 40 Mg/0.4 Ml Syringe SUB-Q DAILY NUBIA Estradiol 0.05 mg 01/13/23 12:06 01/13/23 20:50 Estra
--- NOTE | 2023-01-14 07:07 | PM.DS ---
DS: Admitting Diagnosis Discharge Date 01/14/2023 Admitting Diagnosis pelvic pain/uterine prolapse DS: Discharge Diagnosis Discharge Diagnosis (1) Uterine prolapse: Code(s): N81.4 - Uterovaginal prolapse, unspecified Status: Acute (2) Pelvic pain: Code(s): R10.2 - Pelvic and perineal pain Status: Acute DS: Summary Hospital Course Reason for hospitalization: patient was admitted for hysterectomy and bilateral salpingectomy Hospital Course: she underwent an unremarkable hysterectomy and bilateral salpingectomy. She did have an episode of near syncope. Her hemoglobin did drop but her belly room appeared soft wounds were clean dry and intact incisions were intact and she was voiding without difficulty eating regular diet, passing gas ambulating and generally without complaints Time Spent with Patient Time attestation: Total time spent providing and/or coordinating discharge services: Exam Const: General: cooperative, healthy appearing and comfortable Nutritional Appearance: average body habitus Orientation/consciousness: oriented to person, oriented to place and oriented to time HENMT: Head: normal to inspection Resp: Effort & Inspection: normal respiratory effort Cardio: Rate: regular rate Rhythm: regular rhythm Heart sounds: S1 normal heart sound present and S2 normal heart sound present GI: Inspection: normal to inspection and incision ( clean dry and intact) DS: Data Data Completed and Pending Pending studies at discharge: Pending at discharge 01/13/23 10:21 Surgical [PTH] Routine Labs on day of discharge: Labs from last 24 hours 01/14/23 04:13 WBC 12.5 H RBC 2.70 L Hgb 7.6 L D Hct 24.0 L MCV 88.9 MCH 28.1 MCHC 31.7 L RDW 12.9 Plt Count 139 L MPV 12.3 H Immature Gran % (Auto) 0.2 Neut % (Auto) 80.5 H Lymph % (Auto) 12.5 L [place] % (Auto) 6.4 Eos % (Auto) 0.2 Baso % (Auto) 0.2 Lymph # (Auto) 1.57 [place] # (Auto) 0.8 H Eos # (Auto) 0.0 Baso # (Auto) 0.0 Abs Immat Gran (auto) 0.03 Absolute Neuts (auto) 10.1 H Absolute Nucleated RBC 0.0 Nucleated RBC % 0.0 Discharge Plan Discharge Patient Disposition: Home, Self-Care Stand Alone Forms: General Discharge Instructions Follow-up/Referrals: El Cruz MD [Physician] - Discharge Medications: New hydrocodone-acetaminophen 5-325 mg tablet 1 tablet PO Q4H PRN (Reason: pain) Qty: 30 0RF
--- NOTE | 2023-01-14 07:37 | P.PNAN_ITS ---
Anes - Prog Note Post-Op Date/Time: 01/14/23 07:37 Cardiovascular status: normal Respiratory status: normal Airway patency: baseline Mental status: baseline Post-Op hydration status: normal Vital Signs: Last Vital Signs Temp 37.2 C 01/14/23 04:35 Pulse 69 01/14/23 04:35 Resp 18 01/14/23 04:35 BP 94/45 L 01/14/23 04:35 Pulse Ox 99 01/14/23 04:35 O2 Del Method Room Air 01/14/23 04:35 O2 Flow Rate 8 01/13/23 11:35 Pain Score (VAS): 2 I/O: Intake & Output 01/13/23 01/13/23 01/14/23 15:59 23:59 07:59 Intake Total 650 2400 400 Output Total 40 1550 300 Balance 610 850 100 Laboratory Tests 01/14/23 04:13 01/14/23 04:13 WBC 12.5 H RBC 2.70 L Hgb 7.6 L D Hct 24.0 L MCV 88.9 MCH 28.1 MCHC 31.7 L RDW 12.9 Plt Count 139 L MPV 12.3 H Immature Gran % (Auto) 0.2 Neut % (Auto) 80.5 H Lymph % (Auto) 12.5 L [place] % (Auto) 6.4 Eos % (Auto) 0.2 Baso % (Auto) 0.2 Lymph # (Auto) 1.57 [place] # (Auto) 0.8 H Eos # (Auto) 0.0 Baso # (Auto) 0.0 Abs Immat Gran (auto) 0.03 Absolute Neuts (auto) 10.1 H Absolute Nucleated RBC 0.0 Nucleated RBC % 0.0 Post-procedural complaints: none Patient Feedback: Patient satisfied with anesthetic care.
[2023-01-14] MEDS: HYDROcodone/acetaminophen (*CRX) 10-325 MG TABLET 1 TAB PO (09:45)
[2023-01-14] MEDS: DOCUSATE SODIUM 100 MG CAPSULE PO ×2 (09:45→17:49)
[2023-01-14] MEDS: traMADol HCL (*CRX) 50 MG TABLET PO ×3 (13:50→23:22)
[2023-01-14] MEDS: SODIUM CHLORIDE 0.9% IV 1,000 ML 125 ML (15:30)
[2023-01-14] MEDS: ENOXAPARIN 40 MG/0.4 ML SYRINGE SUB-Q (21:24)
[2023-01-15] MEDS: traMADol HCL (*CRX) 50 MG TABLET PO (04:46)
[2023-01-15] MEDS: SIMETHICONE 80 MG TAB.CHEW PO (04:46)
[2023-01-15 04:59] LABS: Hematocrit 26.6 % (37.0-47.0); Hemoglobin 8.6 g/dL (12.0-15.0)
--- NOTE | 2023-01-15 06:28 | PM.GYNPNOP ---
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 - A/P Postoperative Procedures: Procedures Operation Date: 01/13/23 09:30 Actual Procedure Side Surgeon p Robotic Assisted Total Vaginal Hysterectomy with Right Salpingo-Oophorectomy, Left Salpingectomy Bilateral El Garcia MD Postoperative day: 2 Postoperative plan: routine post-op care and discharge Time Spent With Patient Time: Total time spent is greater than 50% in coordination of care (as documented) at patient's floor/unit and/or counseling patient: Time with patient: less than 15 minutes 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- PN:Subj Post-Op Subjective Date/time seen: 01/15/23 06:28 Interval history: had a near syncopal episode yesterday. Feeling better today Subjective: patient reports feeling better and patient has no complaints Exam Const: General: cooperative, healthy appearing and comfortable Nutritional Appearance: average body habitus Orientation/consciousness: oriented to person, oriented to place and oriented to time HENMT: Head: normal to inspection Resp: Effort & Inspection: normal respiratory effort Cardio: Rate: regular rate Rhythm: regular rhythm Heart sounds: S1 normal heart sound present and S2 normal heart sound present GI: Inspection: normal to inspection ( firm below the umbilicus) 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 - PN: Obj Data Vital Signs Vital Signs: Vital Signs - 24 hr 01/14/23 09:45 01/14/23 15:35 01/14/23 15:39 Temperature 98.3 F 98.2 F 98.2 F Pulse Rate 60 73 73 Respiratory Rate 14 16 14 Blood Pressure 101/60 82/47 L 82/47 L Pulse Oximetry 100 98 98 Oxygen Delivery 01/14/23 12:00 01/14/23 15:45 01/14/23 16:40 Temperature 98.4 F 97.9 F Pulse Rate 73 73 74 Respiratory Rate 14 14 16 Blood Pressure 88/53 L 90/51 L Pulse Oximetry 98 97 99 Oxygen Delivery Room Air 01/14/23 17:31 01/14/23 17:43 01/14/23 17:45 Temperature 97.9 F 98.0 F 97.4 F L Pulse Rate 69 76 77 Respiratory Rate 16 16 14 Blood Pressure 90/52 L 86/48 L 91/57 L Pulse Oximetry 100 100 97 Oxygen Delivery 01/14/23 18:00 01/14/23 19:01 01/14/23 19:01 Temperature 97.3 F L 98.0 F 98.0 F Pulse Rate 76 64 64 Respiratory Rate 16 16 16 Blood Pressure 89/56 L 92/58 L 92/58 L Pulse Oximetry 98 100 100 Oxygen Delivery 01/14/23 20:01 Temperature 98.1 F Pulse Rate 67 Respiratory Rate 16 Blood Pressure 94/57 L Pulse Oximetry 100 Oxygen Delivery Intake/Output Intake/Output: Intake & Output 01/12/23 01/13/23 01/14/23 01/15/23 23:59 23:59 23:59 23:59 Intake Total 3050 1667 Output Total 1590 1100 Balance 1460 567 Meds/Results Medications: Active Medications Generic Name Dose Route Start Last Admin Trade Name Freq PRN Reason Stop Dose Admin Hydrocodone Bitart/Acetaminophen 1 tab 01/13/23 12:06 01/14/23 09:45 Hydrocodone/Acetaminophen (*Crx) 10-325 Mg Tablet PO 1 tab Q3H PRN Administration Pain Rated 6 or Greater Docusate Sodium 100 mg 01/13/23 17:00 01/14/23 17:49 Docusate Sodium 100 Mg Capsule PO 100 mg BID NUBIA Administration Enoxaparin Sodium 40 mg 01/14/23 09:00 01/14/23 21:24 Enoxaparin 40 Mg/0.4 Ml Syringe SUB-Q 40 mg DAILY NUBIA Administration Estradiol 0.05 mg 01/13/23 12:06 01/13/23 20:50 Estradiol 7 Day 0.05 Mg Patch TRANSDERM 0.05 mg WEEKLY NUBIA Administration Ibuprofen 600 mg 01/13/23 12:06 01/14/23 23:22 Ibuprofen 600 Mg Tablet PO 600 mg Q6H PRN Administration Cramping Ketorolac Tromethamine 30 mg 01/13/23 12:06 01/13/23 13:07 Ketorolac 30 Mg/Ml Vial (*Bkc) IV PUSH 01/18/23 12:05 30 mg Q6H PRN Administration Pain Rated 4-6 Naloxone HCl 0.1 mg 01/13/23 12:06 Naloxone Hcl 0.4 Mg/Ml Vial IV PUSH Q2M PRN Respiratory rate less than 10 Ondansetron HCl 4 mg 01/13/23 12:06 Ondansetron Inj 4 Mg/2 Ml Vial IV PUSH Q6H PRN Nausea And Vomiting Simethicone 80 mg 01/13/23 12:06 01/15/23 04:46 Simethicone 80 Mg Tab.Chew PO 80 mg Q2H PRN Administration Gas Tramadol HCl
[2023-01-15 07:40] VITALS: BP 107/67; PULSE 79; RESP 16; TEMP 36.6; O2SAT 100; O2SAT 99
== END 2023-01-15 08:10 | disposition home or self-care (01) ==
LOC: ANHSURGERY 16:49 → ANHOB2 16:49
PROVIDERS: Admitting Provider Obstetrics & Gynecology; PCP Physician Assistant Medical; Visit Provider Obstetrics & Gynecology
PROC: (CPT 58552; principal; 2023-01-13 09:30)
DX: N81.4 Uterovaginal prolapse, unspecified (principal); R10.2 Pelvic and perineal pain; N94.6 Dysmenorrhea, unspecified; N94.10 Unspecified dyspareunia; N80.101 Endometriosis of right ovary, unspecified depth; F41.9 Anxiety disorder, unspecified; R40.0 Somnolence; R68.82 Decreased libido; Q21.12 Patent foramen ovale; F17.210 Nicotine dependence, cigarettes, uncomplicated; F10.90 Alcohol use, unspecified, uncomplicated
CPT/HCPCS: 58552; S2900; 36415; 36430; 85014; 85018; 85025; 86850; 86900; 86901; 86923; 88307; 99199; A9270; G0378; J0330; J0690; J1100; J1650; J1885; J2250; J2405; J2704; J2710; J3010; J7030; J7120; J7121; P9016

== ENCOUNTER 2023-01-23 08:19 | Observation (INO) | payer OTHER, SELFPAY ==
--- NOTE | ~2023-01-23 | XR_ITS ---
Portable chest x-ray Comparison: None Clinical History: Chest pain, status post hysterectomy on 01/12/2023 Findings: Lungs are clear, without focal consolidation or pleural effusion. Cardiomediastinal silho uette is stable. Pneumoperitoneum present under both diaphragms. Impression: Pneumoperitoneum. This could be related to recent hysterectomy, however the patient is 10 days out fr om surgery. Amount of pneumoperitoneum is somewhat more than would typically be expected for this pauline e frame. Correlate for any possibility of bowel perforation. Reviewed, dictated and finalized at location . Impression: Pneumoperitoneum. This could be related to recent hysterectomy, however the pat ient is 10 days out from surgery. Amount of pneumoperitoneum is somewhat more t max would typically be expected for this time frame. Correlate for any possibil ity of bowel perforation.
--- NOTE | ~2023-01-23 | CT_ITS ---
EXAMINATION: CTA chest PE abdomen pel DATE: 01/23/2023 09:33 INDICATION: Postoperative chest pain, generalized abdominal pain. Bladder pain. 01/12/2023 hysterectom y. TECHNIQUE: Computed tomography angiography (CTA) of the chest, abdomen and pelvis was performed with 100 mL Omnipaque-350 intravenous contrast timed to evaluate the pulmonary arteries. Coronal maximum i ntensity projection 3D-reconstructions were created by the technologist. Automated exposure control a nd iterative reconstruction technique were employed. Exam dose: 522.47 mGy-cm total exam DLP. COMPARISON: 01/23/2023 portable AP chest is not available at this time. 02/13/2022 CT abdomen pelvis FINDINGS: There is diagnostic contrast enhancement of the pulmonary arteries and no evidence of pulmo nary embolism. No thoracic aortic aneurysm or dissection. Normal heart size. No pericardial or pleural effusion. No hilar or mediastinal mass lesion or lymphadenopathy. Mild bilateral apical scarring. Minimal discoid atelectasis or scarring at the left lung base, left l ower lobe. No pulmonary infiltrate or consolidation or pulmonary mass lesion. There is pneumoperitoneum, which is likely postsurgical. Differential diagnosis includes ruptured hol low abdominal viscus. No hepatic space-occupying mass lesion is evident. The gallbladder is present. No bile duct dilatatio n. Chronic hypoattenuating lesion of the central spleen and chronic posterior linear lucency, apparently a chronic small cleft in the spleen. No pancreatic mass lesion or pancreatic duct dilatation. Normal morphology of the adrenal glands. No renal mass lesion or urinary tract calculus or hydroureteronephrosis. The urinary bladder appears intact. There is a moderate amount of high attenuation free fluid in the lower pelvis, particularly the depen dent region, which may be due to blood. Normal caliber of the abdominal aorta. No intraperitoneal or retroperitoneal or pelvic mass lesion or adenopathy is noted. No bowel obstruction. There are some small and large bowel air-fluid levels whi ch may be due to postoperative adynamic ileus. Intramedullary johnny and nail are noted in the proximal left femur IMPRESSION: Status post hysterectomy since 02/13/2022 Moderately prominent intraperitoneal free air, which may be postoperative. Differential diagnosis inc ludes ruptured hollow abdominal viscus. Consider short-term follow-up CT abdomen pelvis imaging. Moderate amount of free fluid in the pelvis, likely due to blood Reviewed, dictated and finalized at [facility]. Reviewed, dictated and finalized at location [facility]. IMPRESSION: Status post hysterectomy since 02/13/2022 Moderately prominent intraperitoneal free air, which may be postoperative. Diff erential diagnosis includes ruptured hollow abdominal viscus. Consider short-te rm follow-up CT abdomen pelvis imaging. Moderate amount of free fluid in the pelvis, likely due to blood
[2023-01-23 08:29] VITALS: BP 91/79; PULSE 77; RESP 12; TEMP 37.1; O2SAT 100
[2023-01-23 08:56] LABS: Basophils Percent Auto 0.3 % (0.2-1.2); Eosinophils Absolute Auto 0.2 K/mm3 (0-0.3); Eosinophils Percent Auto 2.2 % (0-4.4); Hemoglobin 11.5 g/dL (12.0-15.0); Immature Granulocyte Absolute 0.02 K/mm3 (0.00-0.031); Immature Granulocyte Percent A 0.3 % (0-0.5); Lymphocytes Absolute Auto 0.45 K/mm3 (0.9-3.2); Lymphocytes Percent Auto 5.8 % (18.3-44.2); Mean Corpuscular HGB Conc 31.9 g/dl (32-36); Mean Corpuscular Hemoglobin 28.3 pg (26-34); Mean Corpuscular Volume 88.7 fl (80-100); Monocytes Absolute Auto 0.6 K/mm3 (0.1-0.6); Monocytes Percent Auto 8.3 % (2.6-8.5); Neutrophils Absolute Auto 6.4 K/mm3 (1.3-6.7); Neutrophils Percent Auto 83.1 % (45.5-73.1); Platelet Count Result 256 k/mm3 (150-375); Red Blood Count 4.06 M/mm3 (4.2-5.4); Red Cell Distribution Width 13.7 % (11.5-14.5); White Blood Count 7.7 K/mm3 (4.5-10.0)
[2023-01-23 08:57] LABS: Alanine Aminotransferase 19 U/L (6-35); Albumin Level 4.4 g/dL (3.5-5.1); Alkaline Phosphatase 78 U/L (38-126); Anion Gap 4 mmol/L (8-16); Aspartate Amino Transferase 32 U/L (14-36); Bilirubin,Total 1.7 mg/dL (0.2-1.3); Blood Urea Nitrogen 15 mg/dL (7-17); Calcium 9.1 mg/dL (8.4-10.2); Carbon Dioxide 33 mmol/L (22-30); Chloride 100 mmol/L (98-107); Estimated CRCL calculation 126 ml/min; Estimated Glomerular Filt Rate > 60; Glucose 111 mg/dL (65-110); Lipase 42 U/L (23-300); Sodium 137 mmol/L (137-145)
--- NOTE | 2023-01-23 09:12 | ECG_ITS ---
Measurements Intervals [place] Rate: 75 P: 64 IA: 152 QRS: 48 QRSD: 71 T: 54 QT: 363 QTc: 408 Interpretive Statements SINUS RHYTHM NORMAL ECG NO PREVIOUS ECG AVAILABLE FOR COMPARISON Electronically Signed On 01-23-2023 10:26:57 CDT by Jl Garg M.D.
--- NOTE | 2023-01-23 09:16 | ED.ABDPAIN ---
HPI - Abdominal Pain General Chief Complaint: Abdominal Pain <Marga Strong PA-C - Last Filed: 01/23/23 18:20> Stated Complaint: abd pain- post op hysterectomy <Marga Strong PA-C - Last Filed: 01/23/23 18:20> Time Seen by Provider: 01/23/23 09:01 <Marga Strong PA-C - Last Filed: 01/23/23 18:20> History of Present Illness HPI narrative: 37-year-old female who is s/p hysterectomy performed by Dr. Collazo on 01/13 reports for evaluation of generalized abdominal pain, worse in the suprapubic region and right upper quadrant. Patient states since the surgery, she has been having significant amounts of pain and was seen 5 days ago with 3 days ago at the office due to pain. She was advised 3 days ago to discontinue her [place] because she was constipated and was given instructions on supportive tx for constipation. She reports this morning she was urinating and experienced an extremely sharp pain in her suprapubic region that radiated to her flanks. She states since then she has had a dull ache. Reports shortly after urinating, she experienced approximately 5 to 10 minutes of substernal sharp chest pain that has since resolved. She is also reporting sharp pains in her right upper quadrant surrounding her incision site. Reports she called Dr. Collazo's office and was advised to come to the emergency department for further evaluation. Of note, the patient reports that she had a vein in her left lower quadrant that was nicked during the hysterectomy. States she last a significant amount of blood and had to receive 2 units of blood postop. She reports the hematoma has improved. she denies fever, body aches, dysuria, urinary frequency or urgency, shortness of breath. She does report with a small amount of vaginal spotting. <Marga Strong PA-C - Last Filed: 01/23/23 18:20> Related Data Allergies/Adverse Reactions: Allergies Allergy/AdvReac Type Severity Reaction Status Date / Time diphenhydramine AdvReac Severe Chest Pain Verified 01/23/23 08:37 [From Benadryl Allergy] <THANG Manzo Last Filed: 01/23/23 18:20> Review of Systems Review of Systems: CONSTITUTIONAL: Denies fever, chills EYES: Denies visual changes, redness, or discharge. ENT: Denies rhinorrhea, congestion, sore throat, or otalgia. CARDIOVASCULAR: See HPI RESPIRATORY: Denies cough or dyspnea. GASTROINTESTINAL: See HPI GENITOURINARY: Denies dysuria or hematuria. SKIN: Denies rash or itching. MUSCULOSKELETAL: Denies back pain, joint pain, or myalgia. NEUROLOGIC: Denies headache, numbness, dizziness, or weakness. PSYCHIATRIC: Denies anxiety or depression. <Marga Strong PA-C - Last Filed: 01/23/23 18:20> [facility] Past Medical History Medical History: Medical History Anxiety Body mass index (BMI) less than 20 Daytime sleepiness Holter monitor, abnormal Low libido PFO (patent foramen ovale) <Marga Strong PA-C - Last Filed: 01/23/23 18:20> Surgical History Surgical History: Surgical History History of laparoscopy History of left oophorectomy <Marga Strong PA-C - Last Filed: 01/23/23 18:20> Family History Family History: Family History Grandparent Family history of lung cancer, Onset Age: 60 Father CHF (congestive heart failure) Mother No problems noted. Sibling No problems noted. <Marga Strong PA-C - Last Filed: 01/23/23 18:20> Social History Social History: Social History Smoking packs per day: 0.5 Smoking cigarettes per day: 10.0 Years smoked: 10 Smoking pack-years: 5.00 Smoking status: Current every day smoker Tobacco type: cigarettes Second hand tobacco smoke exposure: No Smoking end date:
--- NOTE | 2023-01-23 09:29 | PC.NURSE ---
Pt in CT
[2023-01-23 09:39] LABS: INR 1.1; Prothrombin Time 14.8 Seconds (11.1-14.7)
[2023-01-23 09:40] LABS: Partial Thromboplastin Time 31.6 SECONDS (22.3-36.8)
[2023-01-23] MEDS: HYDROmorphone HCL INJ (*CRX) 1 MG/ML SYR 0.5 MG IV PUSH (09:41)
[2023-01-23] MEDS: ONDANSETRON INJ 4 MG/2 ML VIAL IV PUSH (09:42)
[2023-01-23] MEDS: SODIUM CHLORIDE 0.9% IV 1,000 ML 999 ML IV CONT ×2 (09:44→12:21)
[2023-01-23 09:45] LABS: Troponin I 0.027 ng/mL (0.000-0.034)
[2023-01-23 09:47] VITALS: PULSE 80; RESP 16; O2SAT 100
[2023-01-23 11:12] LABS: Appearance Urine Clear (Clear); Bacteria Urine None Seen /hpf; Bilirubin Urine Negative (Negative); Blood Urine 1+ (Negative); Color Urine Yellow (Yellow); Glucose Urine UA Negative (Negative); Ketones Urine Trace mg/dL (Negative); Leukocyte Esterase Ur Negative LEU/UL (Negative); Need Manual Microscopic Reviewed; Nitrate Urine Negative (Negative); Non Pathogenic Casts 0-2; Protein Urine 1+ mg/dL (Negative); RBC Urine 21-50 /hpf (0-2); Squamous Epithelial Cell Urine Few /hpf (Few); Urobilinogen Urine 0.2 mg/dL (<2.0); WBC Urine 0-5 /hpf; pH Urine 6.5 (5.0-9.0)
[2023-01-23 11:14] LABS: Add Urine Microscopic? YES; Specific Grav Ur >= 1.099 (1.001-1.035)
[2023-01-23 12:11] VITALS: BP 103/55; PULSE 73; RESP 18; O2SAT 100
--- NOTE | 2023-01-23 12:33 | PC.NURSE ---
This patient, Manuela Mendoza, was received from ER on 01/23/23 at 1233 after receiving report from IRON [place]. Patient/family oriented to unit policies and routines.
[2023-01-23 12:45] VITALS: BP 105/60; PULSE 74; RESP 18; TEMP 37; O2SAT 100
[2023-01-23] MEDS: SODIUM CHLORIDE 0.9% IV 1,000 ML 125 ML IV CONT ×2 (12:49→17:33)
[2023-01-23 12:51] LABS: Troponin I 0.025 ng/mL (0.000-0.034)
[2023-01-23] MEDS: KETOROLAC 30 MG/ML VIAL (*BKC) IV PUSH ×2 (14:45→20:53)
--- NOTE | 2023-01-23 15:28 | PM.CNGS ---
Assessment and Plan Assessment and plan (1) Postoperative abdominal pain: Code(s): R10.9 - Unspecified abdominal pain; G89.18 - Other acute postprocedural pain Status: Acute Assessment and Plan: CT reviewed extensively with the radiologist and pneumoperitoneum felt to be postoperative in nature, abdominal exam largely benign with no peritoneal signs, discussed findings with patient and family, patient to be admitted and observed carefully (2) Adynamic ileus: Code(s): K56.0 - Paralytic ileus Status: Acute Assessment and Plan: continue serial exams, patient encouraged to be out of bed and ambulating History of Present Illness Consult details Consult date: 01/23/23 Reason for consult: abdominal pain Requesting physician: Jose Robledo MD Narrative: The patient is a 37-year-old female 10 days status post robotic total vaginal hysterectomy and bilateral salpingo oophorectomy by Dr. Collazo presenting to the emergency department complaining of severe, crampy abdominal pain. The patient reports that the pain is mostly located in her right upper quadrant and pelvis. Of note, the patient reports the procedure was complicated by postoperative bleeding and she did receive 2 units of packed red blood cells postop. The patient reports that she initially had a left lower quadrant hematoma that has largely resolved. Workup, including imaging, shows significant pneumoperitoneum, adynamic ileus, as well as pelvic hematoma. Review of Systems Constitutional: Constitutional: Reports as per HPI, Denies anorexia, Denies chills, Reports fatigue, Reports lethargy, Reports malaise, Reports night sweats, Reports poor appetite, Reports weakness, Denies weight gain and Denies weight loss Eyes: Eyes: Reports no additional eye complaints ENT: Reports system reviewed and no additional complaints, except as documented Cardiovascular: Cardiovascular: Reports no additional cardiovascular complaints Respiratory: Respiratory: Reports no additional respiratory complaints Gastrointestinal: Gastrointestinal: Reports as per HPI, Reports abdominal pain, Reports bloating, Reports constipation, Reports GI cramping, Reports early satiety, Reports nausea and Denies vomiting Genitourinary: Genitourinary: Reports no additional female genitourinary complaints Musculoskeletal: Musculoskeletal: Reports no additional musculoskeletal complaints Integumentary/Breasts: Skin/Breast: Reports system reviewed and no additional complaints, except as docu Neurologic: Reports system reviewed and no additional complaints, except as documented Psychiatric: Psychiatric: Reports no additional psychiatric complaints Endocrine: Endocrine: Reports no additional endocrine complaints Hematologic/Lymphatic: Hematologic/Lymphatic: Reports no additional hematologic/lymphatic complaints Allergic/Immunologic: Allergic/Immunologic: Reports no additional allergic/immunologic complaints [facility] Past Medical History Medical History Anxiety Body mass index (BMI) less than 20 Daytime sleepiness Holter monitor, abnormal Low libido PFO (patent foramen ovale) Surgical History Surgical History History of laparoscopy History of left oophorectomy Family History Family History Grandparent Family history of lung cancer, Onset Age: 60 Father CHF (congestive heart failure) Mother No problems noted. Sibling No problems noted. Social History Social History Smoking packs per day: 0.5 Smoking cigarettes per day: 10.0 Years smoked: 10 Smoking pack-years: 5.00 Smoking status: Current every day smoker Tobacco type: cigarettes Second hand tobacco smoke exposure: No Smoking end date: 05/21/22 Alcohol intake: c
[2023-01-23 15:56] LABS: Troponin I 0.024 ng/mL (0.000-0.034)
[2023-01-23 17:20] VITALS: BP 106/64; PULSE 77; RESP 16; TEMP 37.6; O2SAT 99
[2023-01-23 20:15] VITALS: BP 115/66; PULSE 95; RESP 20; TEMP 39.4; O2SAT 97
--- NOTE | 2023-01-23 23:02 | PM.IMHP ---
H&P: HPI History of Present Illness Date/Time: 01/23/231829 Chief Complaint: Pain Narrative: 37 y/o female who had a robotic assisted TVHRSO with left salpingectomy 10 days ago. She had a port site hematoma and received 2 units PRBC. She has been managed as an outpatient for constipation and pain. She phoned this morning with pain on emptying her bladder when it was especially full. She has no fever, no dysuria, minimal vaginal spotting. Review of Systems Review of Systems: All systems reviewed & are unremarkable except as noted in HPI and below PMFSH Past Medical History Medical History Anxiety Body mass index (BMI) less than 20 Daytime sleepiness Holter monitor, abnormal Low libido PFO (patent foramen ovale) Surgical History Surgical History History of laparoscopy History of left oophorectomy Family History Family History Grandparent Family history of lung cancer, Onset Age: 60 Father CHF (congestive heart failure) Mother No problems noted. Sibling No problems noted. Social History Social History Smoking packs per day: 0.5 Smoking cigarettes per day: 10.0 Years smoked: 10 Smoking pack-years: 5.00 Smoking status: Current every day smoker Tobacco type: cigarettes Second hand tobacco smoke exposure: No Smoking end date: 05/21/22 Alcohol intake: current Drinks per week: 2 Substance use: never Substance use type: does not use Living arrangements: with family Occupation/Education: occupation Additional occupation/education comments: [employer] Gender identity (if verbalized by the patient): Female Sexual Orientation (if Verbalized by the Patient): Straight or Heterosexual Spiritual care concerns: No Meds Home Medications and Allergies Home Medications Medication Instructions Recorded Confirmed Type estradiol 0.05 mg/24 hr semiweekly 1 patch transdermal 2XW #8 ea 01/15/23 Rx transdermal patch tramadol 50 mg tablet 50 mg PO Q4H PRN pain #20 tabs 01/15/23 Rx Allergies Allergy/AdvReac Type Severity Reaction Status Date / Time diphenhydramine AdvReac Severe Chest Pain Verified 01/23/23 08:37 [From Benadryl Allergy] Vital Signs Vital Signs - 24 hr 01/23/23 08:29 01/23/23 09:47 01/23/23 12:11 Temperature 37.1 C Pulse Rate 77 80 73 Respiratory Rate 12 16 18 Blood Pressure 91/79 L 103/55 L Pulse Oximetry 100 100 100 Oxygen Delivery Room Air 01/23/23 12:45 01/23/23 17:20 Temperature 37.0 C 37.6 C Pulse Rate 74 77 Respiratory Rate 18 16 Blood Pressure 105/60 106/64 Pulse Oximetry 100 99 Oxygen Delivery Exam Const: Orientation/consciousness: patient oriented x3 Other: Well-developed, well-nourished female in no acute distress. Neck: Thyroid: thyroid normal Lymphatic: no lymphadenopathy noted (in neck, axilla or inguinal nodes) Resp: Effort & Inspection: normal respiratory effort Auscultation: clear to auscultation bilaterally Cardio: Rate: regular rate Rhythm: regular rhythm Heart sounds: S1 normal heart sound present and S2 normal heart sound present GI: Other: ABD: Soft, nontender, nondistended. No guarding or rebound tenderness. No hepatosplenomegaly. Abdominal wall ecchymosis has improved since I saw her a few days ago. : General: Yes no CVA tenderness Other: Deferred. Back/Spine/Pelvis: Back: no CVA tenderness Skin: General skin exam: normal color and no rashes or lesions noted Neuro: General: patient oriented x3 Extrem: Other: Extremities: nontender with no edema Psych: Mental Status: mental status grossly normal Affect: normal affect H&P: Results Labs Labs: Short CBC 01/23/23 Range/Units 08:36 WBC 7.7 (4.5-10.
[2023-01-24 00:25] VITALS: BP 101/58; PULSE 81; RESP 16; TEMP 37.4; O2SAT 98
--- NOTE | 2023-01-24 01:53 | PC.NURSE ---
01/23/20232044 Administered Fleet enema per MD order. Patient able to hold it for 20 minutes then proceeded to have moderate BM of loose shreds of stool.
[2023-01-24 06:20] LABS: Basophils Percent Auto 0.5 % (0.2-1.2); Eosinophils Absolute Auto 0.2 K/mm3 (0-0.3); Eosinophils Percent Auto 3.5 % (0-4.4); Hematocrit 27.1 % (37.0-47.0); Hemoglobin 8.6 g/dL (12.0-15.0); Immature Granulocyte Absolute 0.02 K/mm3 (0.00-0.031); Immature Granulocyte Percent A 0.3 % (0-0.5); Lymphocytes Absolute Auto 0.72 K/mm3 (0.9-3.2); Lymphocytes Percent Auto 11.8 % (18.3-44.2); Mean Corpuscular HGB Conc 31.7 g/dl (32-36); Mean Corpuscular Hemoglobin 28.4 pg (26-34); Mean Corpuscular Volume 89.4 fl (80-100); Mean Platelet Volume 11.1 fl (7.4-10.4); Monocytes Absolute Auto 0.6 K/mm3 (0.1-0.6); Neutrophils Absolute Auto 4.6 K/mm3 (1.3-6.7); Neutrophils Percent Auto 74.9 % (45.5-73.1); Platelet Count Result 184 k/mm3 (150-375); Red Blood Count 3.03 M/mm3 (4.2-5.4); Red Cell Distribution Width 13.5 % (11.5-14.5); White Blood Count 6.1 K/mm3 (4.5-10.0)
[2023-01-24 06:31] LABS: Alanine Aminotransferase 12 U/L (6-35); Alkaline Phosphatase 63 U/L (38-126); Anion Gap 3 mmol/L (8-16); Aspartate Amino Transferase 21 U/L (14-36); Bilirubin,Total 1.1 mg/dL (0.2-1.3); Blood Urea Nitrogen 14 mg/dL (7-17); Carbon Dioxide 27 mmol/L (22-30); Chloride 105 mmol/L (98-107); Estimated CRCL calculation 107 ml/min; Estimated Glomerular Filt Rate > 60; Glucose 91 mg/dL (65-110); Potassium 3.9 mmol/L (3.4-5.0); Sodium 135 mmol/L (137-145)
[2023-01-24 07:05] VITALS: BP 101/57; PULSE 90; RESP 18; TEMP 37.4; O2SAT 99
--- NOTE | 2023-01-24 08:16 | PM.GYNPNOP ---
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 Now with one time fever last night, resolved. Normal WBC. Hgb decreased, likely due to hemodilution after IV hydration. P: Have started ceftriaxone to cover for possible UTI, while awaiting urine culture results. Management of ileus per general surgery - appreciate their input. (2) Pneumoperitoneum: Code(s): K66.8 - Other specified disorders of peritoneum Status: Acute (3) Adynamic ileus: Code(s): K56.0 - Paralytic ileus Status: Acute Postoperative Postoperative day: 11 Time Spent With Patient Time with patient: less than 15 minutes SOCIAL WORKER AIDE- PN:Subj Post-Op Subjective Date/time seen: 01/24/23 08:16 Interval history: Pain OK. Had a bowel movement after enema last night. Also had transient fever. No overt dysuria, though she says she has had suprapubic pain when the bladder is full. She is tearful and wants to go home as soon as possible. Exam Narrative: AVSS I/O OK ABD soft, nontender. Incisions c/d/i. EXT nontender SOCIAL WORKER AIDE - PN: Obj Data Vital Signs Vital Signs: Vital Signs - 24 hr 01/23/23 08:29 01/23/23 09:47 01/23/23 12:11 Temperature 37.1 C Pulse Rate 77 80 73 Respiratory Rate 12 16 18 Blood Pressure 91/79 L 103/55 L Pulse Oximetry 100 100 100 Oxygen Delivery Room Air 01/23/23 12:45 01/23/23 17:20 01/23/23 20:15 Temperature 37.0 C 37.6 C 39.4 C H Pulse Rate 74 77 95 Respiratory Rate 18 16 20 Blood Pressure 105/60 106/64 115/66 Pulse Oximetry 100 99 97 Oxygen Delivery 01/24/23 00:25 01/24/23 07:05 Temperature 37.4 C 37.4 C Pulse Rate 81 90 Respiratory Rate 16 18 Blood Pressure 101/58 L 101/57 L Pulse Oximetry 98 99 Oxygen Delivery Intake/Output Intake/Output: Intake & Output 01/21/23 01/22/23 01/23/23/06/23 23:59 23:59 23:59 23:59 Intake Total 1450 200 Output Total 300 Balance 1150 200 Meds/Results Medications: Active Medications Generic Name Dose Route Start Last Admin Trade Name Freq PRN Reason Stop Dose Admin Acetaminophen 650 mg 01/23/23 11:20 Acetaminophen 325 Mg Tablet PO Q4H PRN Mild Pain (1-3) or Fever Hydromorphone HCl 0.5 mg 01/23/23 11:20 Hydromorphone Hcl Inj (*Crx) 1 Mg/Ml Syr IV PUSH Q4H PRN Pain Rated 7-10 Sodium Chloride 1,000 mls @ 125 mls/hr 01/23/23 11:20 01/24/23 01:25 Normal Saline Iv IV CONT 125 mls/hr .Q8H NUBIA Infusion Ceftriaxone Sodium 1 gm in 50 mls @ 100 mls/hr 01/23/23 22:00 01/24/23 00:30 Rocephin 1 Gm/Ns 50 Ml IVPB 100 mls/hr Q24H NUBIA Administration Ketorolac Tromethamine 30 mg 01/23/23 11:20 01/23/23 20:53 Ketorolac 30 Mg/Ml Vial (*Bkc) IV PUSH 01/28/23 11:19 30 mg Q6H PRN Administration Pain Rated 4-6 Ondansetron HCl 4 mg 01/23/23 11:20 Ondansetron Inj 4 Mg/2 Ml Vial IV PUSH Q4H PRN Nausea Simethicone 80 mg 01/23/23 18:48 Simethicone 80 Mg Tab.Chew PO Q2HR PRN Gas Discomfort Radiology Results: ITS Impressions Chest/Abdomen/Pelvis CTA 01/23/23 09:35 IMPRESSION: Status post hysterectomy since 02/13/2022 Moderately prominent intraperitoneal free air, which may be postoperative. Differential diagnosis includes ruptured hollow abdominal viscus. Consider short-term follow-up CT abdomen pelvis imaging. Moderate amount of free fluid in the pelvis, likely due to blood Chest X-Ray 01/23/23 09:45 Impression: Pneumoperitoneum. This could be related to recent hysterectomy, however the patient is 10 days out from surgery. Amount of pneumoperitoneum is somewhat more than would typically be expected for this time frame. Correlate for any possibility of bowel perforation. Labs 01/24/23 05:16 06/06/23 05:16
[2023-01-24 08:25] VITALS: BP 107/58; PULSE 81; RESP 18; TEMP 37.7; O2SAT 100
[2023-01-24 10:00] VITALS: PULSE 81; RESP 18; O2SAT 100
--- NOTE | 2023-01-24 10:57 | PM.PNGS ---
Progress Note: A&P Assessment and Plan (1) Postoperative abdominal pain: Code(s): R10.9 - Unspecified abdominal pain; G89.18 - Other acute postprocedural pain Status: Acute Assessment and Plan: exam improved, pt anxious to go home, will ADAT, ok to dc home from surgical perspective if lisseth diet, had 2 BMs overnight Subjective Subjective Date/Time Seen: 01/24/23 10:57 Interval history: feels better today, pain improved, did have fever overnight Review of Systems Review of Systems: All systems reviewed & are unremarkable except as noted in HPI and below Exam Const: General: cooperative, comfortable and no acute distress Resp: Auscultation: clear to auscultation bilaterally Cardio: Rate: regular rate Rhythm: regular rhythm GI: Inspection: normal to inspection and non-distended GI Palp: Yes abdominal tenderness, Yes Soft to palpation, Yes Tenderness to palpation present (GI), No Guarding due to palpation present (GI) and No Rigid due to palpation Objective Data Vital Signs Vital Signs: Vital Signs - 24 hr 01/23/23 12:11 01/23/23 12:45 01/23/23 17:20 Temperature 37.0 C 37.6 C Pulse Rate 73 74 77 Respiratory Rate 18 18 16 Blood Pressure 103/55 L 105/60 106/64 Pulse Oximetry 100 100 99 01/23/23 20:15 01/24/23 00:25 01/24/23 07:05 Temperature 39.4 C H 37.4 C 37.4 C Pulse Rate 95 81 90 Respiratory Rate 20 16 18 Blood Pressure 115/66 101/58 L 101/57 L Pulse Oximetry 97 98 99 01/24/23 08:25 Temperature 37.7 C H Pulse Rate 81 Respiratory Rate 18 Blood Pressure 107/58 L Pulse Oximetry 100 Intake/Output Intake/Output: Intake & Output 01/21/23 01/22/23 01/23/23 01/24/23 23:59 23:59 23:59 23:59 Intake Total 1450 200 Output Total 300 Balance 1150 200 Meds/Results Medications: Active Medications Generic Name Dose Route Start Last Admin Trade Name Freq PRN Reason Stop Dose Admin Acetaminophen 650 mg 01/23/23 11:20 Acetaminophen 325 Mg Tablet PO Q4H PRN Mild Pain (1-3) or Fever Hydromorphone HCl 0.5 mg 01/23/23 11:20 Hydromorphone Hcl Inj (*Crx) 1 Mg/Ml Syr IV PUSH Q4H PRN Pain Rated 7-10 Sodium Chloride 1,000 mls @ 125 mls/hr 01/23/23 11:20 01/24/23 01:25 Normal Saline Iv IV CONT 125 mls/hr .Q8H NUBIA Infusion Ceftriaxone Sodium 1 gm in 50 mls @ 100 mls/hr 01/23/23 22:00 01/24/23 00:30 Rocephin 1 Gm/Ns 50 Ml IVPB 100 mls/hr Q24H NUBIA Administration Ketorolac Tromethamine 30 mg 01/23/23 11:20 01/23/23 20:53 Ketorolac 30 Mg/Ml Vial (*Bkc) IV PUSH 01/28/23 11:19 30 mg Q6H PRN Administration Pain Rated 4-6 Ondansetron HCl 4 mg 01/23/23 11:20 Ondansetron Inj 4 Mg/2 Ml Vial IV PUSH Q4H PRN Nausea Simethicone 80 mg 01/23/23 18:48 Simethicone 80 Mg Tab.Chew PO Q2HR PRN Gas Discomfort Radiology Results: ITS Impressions Chest/Abdomen/Pelvis CTA 01/23/23 09:35 IMPRESSION: Status post hysterectomy since 02/13/2022 Moderately prominent intraperitoneal free air, which may be postoperative. Differential diagnosis includes ruptured hollow abdominal viscus. Consider short-term follow-up CT abdomen pelvis imaging. Moderate amount of free fluid in the pelvis, likely due to blood Chest X-Ray 01/23/23 09:45 Impression: Pneumoperitoneum. This could be related to recent hysterectomy, however the patient is 10 days out from surgery. Amount of pneumoperitoneum is somewhat more than would typically be expected for this time frame. Correlate for any possibility of bowel perforation. Labs Labs: Laboratory Results - last 24 hr 01/23/23 01/23/23 01/23/23 10:21 12:23 15:24 WBC RBC Hgb Hct MCV MCH MCHC RDW Plt Count MPV Immature Gran % (Auto) Neut % (Auto) Lymph % (Auto) Dane % (Auto) Eos % (Auto) Baso % (Auto) Lymph # (Auto) Dane # (Auto) Eos # (Auto) Baso # (Auto) Abs Immat Gr
[2023-01-24 12:34] VITALS: BP 113/66; PULSE 74; RESP 18; TEMP 37.1; O2SAT 100
--- NOTE | 2023-01-24 12:43 | PM.GYNPNOP ---
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 Tolerated diet. Would like to go home. P: Home to f/u 1 week. 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 Pain OK. Would like to go home. Exam Narrative: AVSS I/O OK ABD soft, mildly tender in lower quadrants bilaterally. No guarding / rebound tenderness. Incisions c/d/i. 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: Obj Data Vital Signs Vital Signs: Vital Signs - 24 hr 01/23/23 12:45 01/23/23 17:20 01/23/23 20:15 Temperature 37.0 C 37.6 C 39.4 C H Pulse Rate 74 77 95 Respiratory Rate 18 16 20 Blood Pressure 105/60 106/64 115/66 Pulse Oximetry 100 99 97 Oxygen Delivery 01/24/23 00:25 01/24/23 07:05 01/24/23 08:25 Temperature 37.4 C 37.4 C 37.7 C H Pulse Rate 81 90 81 Respiratory Rate 16 18 18 Blood Pressure 101/58 L 101/57 L 107/58 L Pulse Oximetry 98 99 100 Oxygen Delivery 01/24/23 10:00 01/24/23 12:34 Temperature 37.1 C Pulse Rate 81 74 Respiratory Rate 18 18 Blood Pressure 113/66 Pulse Oximetry 100 100 Oxygen Delivery Room Air Intake/Output Intake/Output: Intake & Output 01/21/23 01/22/23 01/23/23 01/24/23 23:59 23:59 23:59 23:59 Intake Total 1450 700 Output Total 300 700 Balance 1150 0 Meds/Results Medications: Active Medications Generic Name Dose Route Start Last Admin Trade Name Freq PRN Reason Stop Dose Admin Acetaminophen 650 mg 01/23/23 11:20 Acetaminophen 325 Mg Tablet PO Q4H PRN Mild Pain (1-3) or Fever Hydromorphone HCl 0.5 mg 01/23/23 11:20 Hydromorphone Hcl Inj (*Crx) 1 Mg/Ml Syr IV PUSH Q4H PRN Pain Rated 7-10 Sodium Chloride 1,000 mls @ 125 mls/hr 01/23/23 11:20 01/24/23 01:25 Normal Saline Iv IV CONT 125 mls/hr .Q8H NUBIA Infusion Ceftriaxone Sodium 1 gm in 50 mls @ 100 mls/hr 01/23/23 22:00 01/24/23 00:30 Rocephin 1 Gm/Ns 50 Ml IVPB 100 mls/hr Q24H NUBIA Administration Ketorolac Tromethamine 30 mg 01/23/23 11:20 01/23/23 20:53 Ketorolac 30 Mg/Ml Vial (*Bkc) IV PUSH 01/28/23 11:19 30 mg Q6H PRN Administration Pain Rated 4-6 Ondansetron HCl 4 mg 01/23/23 11:20 Ondansetron Inj 4 Mg/2 Ml Vial IV PUSH Q4H PRN Nausea Simethicone 80 mg 01/23/23 18:48 Simethicone 80 Mg Tab.Chew PO Q2HR PRN Gas Discomfort Radiology Results: ITS Impressions Chest/Abdomen/Pelvis CTA 01/23/23 09:35 IMPRESSION: Status post hysterectomy since 02/13/2022 Moderately prominent intraperitoneal free air, which may be postoperative. Differential diagnosis includes ruptured hollow abdominal viscus. Consider short-term follow-up CT abdomen pelvis imaging. Moderate amount of free fluid in the pelvis, likely due to blood Chest X-Ray 01/23/23 09:45 Impression: Pneumoperitoneum. This could be related to recent hysterectomy, however the patient is 10 days out from surgery. Amount of pneumoperitoneum is somewhat more than would typically be expected for this time frame. Correlate for any possibility of bowel perforation. Labs 01/24/23 05:16 01/24/23 05:16 Labs: Laboratory Results - last 24 hr 01/23/23 01/23/23 01/24/23 12:23 15:24 05:16 WBC 6.1 RBC 3.03 L Hgb 8.6 L Hct 27.1 L MCV 89.4 MCH 28.4 MCHC 31.7 L RDW 13.5 Plt Count 184 MPV 11.1 H Immature Gran % (Auto) 0.3 Neut % (Auto) 74.9 H Lymph % (Auto) 11.8 L [place] % (Auto) 9.0 H Eo
--- NOTE | 2023-01-24 12:49 | P.DS_ITS ---
DS: Admitting Diagnosis Discharge Date 01/24/23 Admitting Diagnosis Abdominal pain Ileus DS: Discharge Diagnosis Discharge Diagnosis (1) Postoperative abdominal pain: Code(s): R10.9 - Unspecified abdominal pain; G89.18 - Other acute postprocedural pain Status: Acute (2) Pneumoperitoneum: Code(s): K66.8 - Other specified disorders of peritoneum Status: Acute (3) Adynamic ileus: Code(s): K56.0 - Paralytic ileus Status: Acute DS: Summary Hospital Course Hospital Course: Admitted through ED for pain control. General surgery consulted - no clinical concern for perforated viscus. Observed overnight and pain improved. Was able to have a bowel movement. One fever and some dysuria led to empiric treatment for UTI. Tolerated regular diet. Home to f/u office 1 week. DS: Data Data Completed and Pending Labs on day of discharge: Labs from last 24 hours 01/24/23 01/23/23 01/23/23 05:16 15:24 12:23 WBC 6.1 RBC 3.03 L Hgb 8.6 L Hct 27.1 L MCV 89.4 MCH 28.4 MCHC 31.7 L RDW 13.5 Plt Count 184 MPV 11.1 H Immature Gran % (Auto) 0.3 Neut % (Auto) 74.9 H Lymph % (Auto) 11.8 L [place] % (Auto) 9.0 H Eos % (Auto) 3.5 Baso % (Auto) 0.5 Lymph # (Auto) 0.72 L [place] # (Auto) 0.6 Eos # (Auto) 0.2 Baso # (Auto) 0.0 Abs Immat Gran (auto) 0.02 Absolute Neuts (auto) 4.6 Absolute Nucleated RBC 0.0 Nucleated RBC % 0.0 Sodium 135 L Potassium 3.9 Chloride 105 Carbon Dioxide 27 Anion Gap 3 L BUN 14 Creatinine 0.60 L Estim Creat Clear Calc 107 Estimated GFR > 60 Glucose 91 Calcium 8.0 L Total Bilirubin 1.1 AST 21 ALT 12 Alkaline Phosphatase 63 Troponin I 0.024 0.025 Total Protein 6.0 L Albumin 3.0 L Discharge Plan Discharge Attending physician on discharge: Jose Robledo Consulting providers: Marga Strong Discharging Clinician: Jose Robledo Patient Disposition: Home, Self-Care Activity: may shower and pelvic rest Diet: regular Wound Care Instructions: incision open to air Discharge Instructions: Call or return if temperature above 100.4? F, increased abdominal pain, increased vaginal bleeding or any new problems. Stand Alone Forms: General Discharge Information Follow-up/Referrals: El Cruz MD [Physician] - 1 Week Discharge Medications: New cephalexin 500 mg capsule 500 mg PO Q8H 5 Days Qty: 15 0RF ibuprofen 600 mg tablet 600 mg PO Q6H PRN (Reason: pain) Qty: 30 0RF Continued estradiol 0.05 mg/24 hr patch semiweekly 1 patch transdermal 2XW Qty: 8 0RF Rx Instructions: apply 1 patch for 3 days alternating with 1 patch for 4 days each week Discontinued tramadol 50 mg tablet 50 mg PO Q4H PRN (Reason: pain) Qty: 20 0RF Date of admission: 01/23/23 11:20 Primary Care Provider: Jessie Campa Admitting Provider: Jose Robledo Attending physician on admission: Jose Robledo Condition: Stable
== END 2023-01-24 13:27 | disposition home or self-care (01) ==
LOC: ANHED 11:20 → ANHOB2 11:46
PROVIDERS: Emergency Medicine; Admitting Provider Obstetrics & Gynecology; Emergency Provider Physician Assistant; PCP Physician Assistant Medical; Visit Provider Obstetrics & Gynecology
DX: R10.11 Right upper quadrant pain (principal); G89.18 Other acute postprocedural pain; K56.0 Paralytic ileus; K66.8 Other specified disorders of peritoneum; Z90.710 Acquired absence of both cervix and uterus; N93.9 Abnormal uterine and vaginal bleeding, unspecified; R39.89 Other symptoms and signs involving the genitourinary system; R63.0 Anorexia; Z68.1 Body mass index [BMI] 19.9 or less, adult; F41.9 Anxiety disorder, unspecified; R40.0 Somnolence; Q21.12 Patent foramen ovale; F17.210 Nicotine dependence, cigarettes, uncomplicated; F10.90 Alcohol use, unspecified, uncomplicated; Z79.3 Long term (current) use of hormonal contraceptives; Z79.891 Long term (current) use of opiate analgesic
CPT/HCPCS: 36415; 71045; 71275; 74177; 80053; 81001; 83690; 84484; 85025; 85610; 85730; 87086; 93005; 96361; 96374; 96375; 96376; 99285; G0378; J0696; J1170; J1885; J2405; J7030; Q9967